=== PATIENT | female | born 2000 | race Caucasian/White ===

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

== ENCOUNTER 2019-05-14 20:33 | Emergency (ER) | payer OTHER ==
[2019-05-14 21:01] VITALS: BP 140/85; PULSE 76; TEMP 98.1; BMI 18.4
--- NOTE | 2019-05-14 22:24 | PDOC ---
History of Present Illness - General Chief Complaint: Pain Stated Complaint: R KNEE PAIN Time Seen by Provider: 05/14/19 21:06 History Source: Patient - History of Present Illness Occurred: reports: other Lower Extremity Pain Location: right: knee Method of Injury: Yes: fell Past History - Past Medical History Allergies/Adverse Reactions: Allergies Allergy/AdvReac Type Severity Reaction Status Date / Time No Known Allergies Allergy Verified 12/13/18 16:49 Home Medications: Ambulatory Orders Escitalopram Oxalate [Lexapro -] 10 mg PO DAILY 04/22/16 Ranitidine [Zantac -] 150 mg PO BID #20 tablet 04/22/16 COPD: No - Psycho Social/Smoking Cessation Hx Smoking History: Never smoked Hx Alcohol Use: No Drug/Substance Use Hx: No Review of Systems - Review of Systems Musculoskeletal: Yes: Joint Pain. No: Joint Swelling *Physical Exam - Vital Signs Last Vital Signs Temp Pulse Resp BP Pulse Ox 98.1 F 76 20 140/85 99 05/14/19 20:58 05/14/19 20:58 05/14/19 20:58 05/14/19 20:58 05/14/19 20:58 - Physical Exam General Appearance: Yes: Appropriately Dressed. No: Apparent Distress HEENT: positive: Normal Voice Neck: positive: Supple Respiratory/Chest: negative: Respiratory Distress Extremity: positive: Normal Inspection. negative: Tender, Swelling Integumentary: positive: Dry, Warm Neurologic: positive: Alert, Normal Mood/Affect ED Treatment Course - RADIOLOGY Radiology Studies Ordered: Category Date Time Status KNEE 3 POS-RIGHT [RAD] Stat Radiology 05/14/19 22:14 Ordered Medical Decision Making - Medical Decision Making 05/14/19 22:15 19-year-old female here with right knee pain after fall onto knee 4 days ago. Has been able to ambulate. Has not taken anything for pain as she does not believe in pain meds per patient see exam M/l mild knee sprain Exam unremarkable -XR 05/14/19 23:00 XR neg for fx. Dc w/ OTC meds prn pain Discharge - Discharge Information Problems reviewed: Yes Clinical Impression/Diagnosis: Knee sprain Qualifiers: Encounter type: initial encounter Involved ligament of knee: unspecified ligament Laterality: right Qualified Code(s): S83.91XA - Sprain of unspecified site of right knee, initial encounter Condition: Good Disposition: HOME - Follow up/Referral - Patient Discharge Instructions Patient Printed Discharge Instructions: DI for Knee Sprain Additional Instructions: X-ray shows no fracture. You have a mild knee sprain. Take Motrin or Tylenol as needed - Post Discharge Activity
== END 2019-05-14 22:58 | disposition home or self-care (01) ==
LOC: JERFT 20:33
DX: S83.8X1A Sprain of other specified parts of right knee, initial encounter (principal); W19.XXXA Unspecified fall, initial encounter; Y93.89 Activity, other specified; Y92.89 Other specified places as the place of occurrence of the external cause; Y99.8 Other external cause status
CPT/HCPCS: 73562-TC-RT-FY; 99281-25

== ENCOUNTER 2020-03-13 14:46 | Emergency (ER) | payer OTHER ==
[2020-03-13 14:55] VITALS: BP 127/85; PULSE 89; BMI 28.3
== END 2020-03-13 15:57 | disposition home or self-care (01) ==
LOC: JERFT 14:46
DX: S63.92XA Sprain of unspecified part of left wrist and hand, initial encounter (principal)
CPT/HCPCS: 99282-25

== ENCOUNTER 2021-09-05 20:04 | Emergency (ER) | payer OTHER ==
[2021-09-05 20:10] VITALS: BP 138/90; PULSE 116; TEMP 98; BMI 30.2
[2021-09-05 21:59] LABS: BASO % 1.1 % (0-2.0); HEMATOCRIT 41.6 % (32.4-45.2); HEMOGLOBIN 14.4 GM/dL (10.7-15.3); LYMPH % 38.4 % (8-40); MCHC 34.6 g/dl (32.0-36.0); MEAN CELL VOLUME 89.5 fl (80-96); MEAN PLT VOLUME 7.7 fl (7.5-11.1); MONO % 6.2 % (3.8-10.2); NEUT % 53.3 % (42.8-82.8); PLATELET COUNT 318 10^3/uL (134-434); RBC 4.64 M/mm3 (3.60-5.2); RDW 12.4 % (11.6-15.6); WHITE BLOOD COUNT 10.2 K/mm3 (4.0-10.0)
[2021-09-05 22:27] LABS: ALBUMIN 4.3 g/dl (3.4-5.0); BLOOD UREA NITROGEN 13.2 mg/dL (7-18); CALCIUM 9.6 mg/dL (8.5-10.1)
[2021-09-05 22:30] LABS: CREATININE 0.7 mg/dL (0.55-1.3)
[2021-09-05 22:32] LABS: BILIRUBIN,TOTAL 0.8 mg/dL (0.2-1); TOT PROT 8.3 g/dl (6.4-8.2)
[2021-09-05 23:03] LABS: PH,URINE 5.5 (5.0-8.0); URINE APPEARANCE CLEAR; URINE BILIRUBIN NEGATIVE (NEGATIVE); URINE COLOR YELLOW; URINE GLUCOSE (UA) NEGATIVE (NEGATIVE); URINE KETONE NEGATIVE (NEGATIVE); URINE LEUK ESTERASE NEGATIVE (NEGATIVE); URINE NITRITE NEGATIVE (NEGATIVE); URINE PROTEIN NEGATIVE (NEGATIVE); URINE UROBILINOGEN 0.2 mg/dL (0.2-1.0)
== END 2021-09-05 23:30 | disposition home or self-care (01) ==
LOC: JERFT 20:04
DX: R53.1 Weakness (principal)
CPT/HCPCS: 36415; 80053; 81003; 85025; 99283-25

== ENCOUNTER 2023-08-14 10:23 | Emergency (ER) | payer OTHER ==
[2023-08-14 10:28] VITALS: BP 133/88; PULSE 96; RESP 18; TEMP 98; BMI 28.9
[2023-08-14] MEDS ORDERED: IBUPROFEN 400 MG TABLET (FP) PO ONE (15:07)
[2023-08-14] MEDS: IBUPROFEN 400 MG TABLET (FP) PO ONE (15:08)
== END 2023-08-14 17:28 | disposition home or self-care (01) ==
LOC: JER 10:23 → JERFT 10:23
PROC: 2W3CX1Z Immobilization of Right Lower Arm using Splint (ICD-10-PCS; principal; 2023-08-14)
DX: S60.221A Contusion of right hand, initial encounter (principal); X58.XXXA Exposure to other specified factors, initial encounter
CPT/HCPCS: 73130-TC-RT-FY; 99283-25